=== PATIENT | male | born 1940 | race Caucasian/White ===

== ENCOUNTER → 2016-08-24 | Outpatient (CLI) | payer MEDICARE, OTHER ==
--- NOTE | 2016-08-24 13:53 | Diagnostic Imaging Report ---
Indications: COUGH Technique: PA and lateral chest Findings: Comparison: 12/03/2015 Lungs and pleura remain clear. Heart size and pulmonary vasculature remain within normal limits. Aortic arch calcification, right chest wall pacemaker, osteophytes at the margins of multiple thoracic intervertebral disc spaces, mild anterior wedging deformities of multiple adjacent thoracic vertebral bodies all again noted and unchanged. No new abnormality demonstrated. IMPRESSION: No evidence of acute cardiopulmonary disease, unchanged Stable chronic changes as described
== END | disposition home or self-care (01) ==
LOC: RAD 12:40
DX: R05 Cough (principal); Z95.0 Presence of cardiac pacemaker; M25.78 Osteophyte, vertebrae
CPT/HCPCS: 71020

== ENCOUNTER → 2017-02-13 | Outpatient (CLI) | payer MEDICARE, OTHER ==
--- NOTE | 2017-02-13 09:56 | Diagnostic Imaging Report ---
Indications: COUGH Technique: PA and lateral chest Findings: Comparison: 08/24/2016 Linear densities and increased interstitial markings have developed in both lung bases. Cardiac silhouette has increased in size. Mild pulmonary vascular redistribution suggested. No pleural abnormality evident. IMPRESSION: Findings suggest development of mild congestive change Element of superimposed subsegmental atelectasis in both lung bases
== END | disposition home or self-care (01) ==
LOC: RAD 08:45
DX: R05 Cough (principal); J98.11 Atelectasis
CPT/HCPCS: 71020

== ENCOUNTER 2017-08-22 09:44 | Inpatient (IN) | payer MEDICARE, MEDICAID ==
[~2017-08-22] VITALS: Ht 180.3 cm; Wt 111.1 kg
--- NOTE | 2017-08-22 10:07 | History & Physical ---
History and Physical History & Physicial Vital Signs -Extended Height: 71 inches Weight: 240 pounds Temperature: 98.6 degrees F ( oral) Pulse rate: 70 /min Pulse rhythm: regular Respirations: 16 /min O2 Sat: 94% Blood Pressure #1: 148/80 Calculations Body Mass Index: 33.59 Body Surface Area (m2): 2.28 History of Present Illness Hx. Source: patient Primary complaint: COPD exacerbation 76 Years Old Male patient presents today for admission. Patient complains of shortness of breath and a wet cough with discolored sputum. Patient with worsening symptoms overall and increasing dyspnea and chest tightness. Patient without reported fevers. No ill contacts. notes concerns and patient now being admitted patient with no fevers or congestion. patient taking inhalers as recommended and has been compliant overall. Active Medications (reviewed today): ATROVENT 0.06 % NASAL SOLUTION (IPRATROPIUM BROMIDE) 2 puff tid SPIRIVA RESPIMAT 2.5 MCG/ACT INHALATION AEROSOL SOLUTION (TIOTROPIUM BROMIDE MONOHYDRATE) 2 PUFF DAILY NOVOLOG 100 UNIT/ML SUBCUTANEOUS SOLUTION (INSULIN ASPART) 12 units DIOVAN 320 MG ORAL TABLET (VALSARTAN) Take one tablet daily CELEBREX 200 MG ORAL CAPSULE (CELECOXIB) Take one tablet two times daily ADVAIR DISKUS 500-50 MCG/DOSE INHALATION AEROSOL POWDER BREATH ACTIVATED ( FLUTICASONE-SALMETEROL) 1 PUFF BID NEXIUM 40 MG ORAL CAPSULE DELAYED RELEASE (ESOMEPRAZOLE MAGNESIUM) 1 by mouth qd LIPITOR 20 MG ORAL TABLET (ATORVASTATIN CALCIUM) 1 by mouth every pm JANUVIA 100 MG ORAL TABLET (SITAGLIPTIN PHOSPHATE) 1 daily LANTUS 100 UNIT/ML SUBCUTANEOUS SOLUTION (INSULIN GLARGINE) 15 units qhs QNASL 80 MCG/ACT NASAL AEROSOL SOLUTION (BECLOMETHASONE DIPROP (NASAL)) 1 PUFF BID SPIRIVA HANDIHALER 18 MCG INHALATION CAPSULE (TIOTROPIUM BROMIDE MONOHYDRATE) 1 qd Current Allergies (reviewed today): * LIQUID IRON (Mild) Risk Factors: Smoked Tobacco Use: Former smoker Cigarettes: Yes -- 3 pack(s) per day, Pack-years: 2-3ppd x 50years Year started: age 8 Year quit: 2006 Years Since Last Quit: 10 Smokeless Tobacco Use: Never Passive smoke exposure: no Drug use: no Caffeine use: 1 drinks per day Alcohol use: no Seatbelt use: 100 % Sun Exposure: frequently Review of Systems General: denies fevers, chills, sweats, anorexia, fatigue, malaise, weight loss Eyes: catarcts Ear/Nose/Throat: Congestion-intermittent Cardiovascular: pacemaker PVD Respiratory: See HPI Gastrointestinal: Denies nausea, vomiting, diarrhea, constipation, change in bowel habits, abdominal pain, melena, hematochezia, jaundice Genitourinary: Denies dysuria, hematuria, discharge, frequency, hesitancy, nocturia, incontinence, genital sores, impotence or decreased libido Musculoskeletal: arthritis Skin: denies rash, itching, dryness, suspicious lesions Neurologic: denies transient paralysis, weakness, paresthesias, seizures, syncope, tremors, vertigo Psychiatric: DEPRESSION Endocrine: denies cold intolerance, heat intolerance, polydipsia, polyphagia, polyuria, weight change Hematologic/Lymphatic: denies abnormal bruising, bleeding, enlarged lymph nodes Allergic/Immunologic: denies urticaria, hay fever, persistent infections, HIV exposure Physical Exam General Appearance: well nourished, well hydrated, no acute distress Respiratory Respiratory Effort: no intercostal retractions or use of accessory muscles Palpation: normal fremitus Auscultation: scattered rhonchi and reduced breath sounds with some wheeze oropharynx injected mild nasal discharge Cardiovascular Palpation: no thrill or palpable murmurs, no displacement of PMI Auscultation: S1, S2, no murmur, rub, or gallop Carotid arteries: pulses 2+, symmetric, no bruits pacemaker Peripheral Circulation: no cyanosis, clubbing, edema, or varicosities Musculoskeletal Gait and Station: stable and able to ambulate Digits and nails: arthritis Assessment COPD with acute exacerbation underlying respiratory infection possible Pneumonia nasal congestion Hypertension Plan admit IV steroids IV antibiotics respiratory care DVT prophylaxis resume home meds monitor for change IV hydration if needed will follow up for discharge planning impression, plan, and exam edited and reviewed in detail care discussed with TAMMI GALEAS Aug 22, 2017 10:07
--- NOTE | 2017-08-22 15:19 | Diagnostic Imaging Report ---
Indication: Cough Technique: One view of the chest Comparison: 02/13/2017 Findings: Slightly better inspiration currently. The heart is enlarged. Lungs and pleural spaces are clear, and previously demonstrated interstitial congestion has decreased. Impression: Cardiomegaly Decreased interstitial congestion, since 02/13/2017
[2017-08-22 15:34] LABS: BASOPHILS % (AUTO) 1.2 % (0.0-2.0); EOSINOPHILS % (AUTO) 0.9 % (0.0-3.0); HEMATOCRIT 44.6 % (42.0-52.0); HEMOGLOBIN 13.4 G/DL (14.2-18.0); LYMPHOCYTES % (AUTO) 12.6 % (20.0-45.0); MEAN CORPUSCULAR VOLUME 86 FL (80-99); NEUTROPHILS % (AUTO) 74.3 % (45.0-75.0); PLATELET COUNT 217 K/UL (150-450); RED BLOOD COUNT 5.16 M/UL (4.70-6.10); WHITE BLOOD COUNT 9.6 K/UL (4.8-10.8)
[2017-08-22 16:00] VITALS: BP 132/59
[2017-08-22] MEDS: NovoLOG Insulin Flexpen SUBQ SCH ×2 (17:00→21:02)
[2017-08-22] MEDS: Solu-MEDROL 40mg Inj IVP SCH (17:00)
[2017-08-22] MEDS: Albuterol/Ipratropium 3ml neb HHN SCH ×3 (17:00→22:42)
[2017-08-22] MEDS: cefTRIAXone 1 GM in D5W 55 ML IVPB SCH (18:06)
[2017-08-22 18:49] LABS: ANION GAP 14 mmol/L (5-15); BLOOD UREA NITROGEN 40 mg/dL (7-18); CALCIUM 7.9 MG/DL (8.5-10.1); CARBON DIOXIDE 21 MMOL/L (21-32); CHLORIDE 103 MMOL/L (98-107); CREATININE 1.7 MG/DL (0.55-1.30); SODIUM 138 MMOL/L (136-145)
[2017-08-22 20:00] VITALS: BP 171/86
[2017-08-22] MEDS: TraZODone 50mg tab ORAL SCH (20:58)
[2017-08-22] MEDS: Tamsulosin 0.4mg cap ORAL SCH (20:58)
[2017-08-22] MEDS: Atorvastatin 20mg tab ORAL SCH (20:58)
[2017-08-22] MEDS ORDERED: Heparin 5000 units/ml inj SUBQ SCH (21:00)
[2017-08-22] MEDS ORDERED: Zolpidem 5mg tab ORAL PRN (21:00)
[2017-08-22] MEDS: Advair 250/50 Inhaler - 14 dose INH SCH (21:09)
[2017-08-22] MEDS: Xarelto 15mg tab ORAL SCH (21:39)
[2017-08-23] VITALS (7 sets, daily range): BP systolic 127–180; BP diastolic 65–91
[2017-08-23] MEDS: Albuterol/Ipratropium 3ml neb HHN SCH ×6 (03:19→23:07)
[2017-08-23] MEDS: Solu-MEDROL 40mg Inj IVP SCH ×3 (05:58→22:11)
[2017-08-23] MEDS: NovoLOG Insulin Flexpen SUBQ SCH ×4 (06:01→21:07)
[2017-08-23] MEDS: Irbesartan 150mg tablet ORAL SCH (08:49)
[2017-08-23] MEDS: Tolterodine 2mg tab ORAL SCH (08:49)
[2017-08-23] MEDS: Advair 250/50 Inhaler - 14 dose INH SCH ×2 (09:53→23:09)
--- NOTE | 2017-08-23 11:18 | Pulmonology Progress Note ---
Assessment/Plan Assessment/Plan COPD with acute exacerbation underlying respiratory infection possible Pneumonia nasal congestion Hypertension Plan IV steroids IV antibiotics IV hydration x 1 day respiratory care DVT prophylaxis home meds monitor for change will follow up for discharge planning impression, plan, and exam edited and reviewed in detail care discussed with RN Subjective Allergies: Coded Allergies: IRON (Verified Allergy, Unknown, 06/03/10) Subjective care noted less congested findings noted Objective Last 24 Hour Vital Signs Date Time Temp Pulse Resp B/P (MAP) Pulse Ox O2 Delivery O2 Flow Rate FiO2 08/23/17 09:54 76 16 96 Room Air 21 08/23/17 09:53 72 16 96 Room Air 21 08/23/17 08:49 169/65 08/23/17 08:18 72 18 98 Room Air 21 08/23/17 08:08 75 16 Room Air 21 08/23/17 08:08 21 08/23/17 08:08 75 16 97 Room Air 21 08/23/17 08:00 97.1 77 20 169/65 97 08/23/17 04:00 97.9 69 19 154/77 96 08/23/17 03:29 75 18 98 Room Air 21 08/23/17 03:20 21 08/23/17 03:19 70 16 97 Room Air 21 08/23/17 00:33 97.7 69 18 166/76 95 08/22/17 22:44 78 18 96 Room Air 21 08/22/17 22:35 75 16 95 Room Air 21 08/22/17 22:35 21 08/22/17 21:40 171/86 08/22/17 21:11 75 16 96 Room Air 21 08/22/17 21:10 69 16 96 Room Air 21 08/22/17 20:00 97.5 72 18 171/86 97 08/22/17 19:40 69 18 95 Room Air 21 08/22/17 19:30 69 16 95 Room Air 21 08/22/17 19:30 95 16 Room Air 21 08/22/17 19:30 21 08/22/17 18:29 2.0 28 08/22/17 18:28 2.0 28 08/22/17 16:00 97.6 72 19 132/59 95 Intake and Output 08/22/17 08/23/17 19:00 07:00 Intake Total 240 ml 240 ml Balance 240 ml 240 ml Intake Oral 240 ml 240 ml # Voids 4 # Bowel Movements 1 Objective WDWN NAD reduced breath sounds bilaterally with some wheeze [id number] without MRG NABS nontender no HSM no CC trace edema nonfocal Laboratory Tests 08/22/17 14:40: White Blood Count 9.6, Red Blood Count 5.16, Hemoglobin 13.4L, Hematocrit 44.6, Mean Corpuscular Volume 86, Mean Corpuscular Hemoglobin 26.0L, Mean Corpuscular Hemoglobin Concent 30.1L, Red Cell Distribution Width 14.0, Platelet Count 217, Mean Platelet Volume 9.2, Neutrophils (%) (Auto) 74.3, Lymphocytes (%) (Auto) 12.6L, Monocytes (%) (Auto) 11.0H, Eosinophils (%) (Auto) 0.9, Basophils (%) ( Auto) 1.2, Sodium Level 138, Potassium Level 5.0, Chloride Level 103, Carbon Dioxide Level 21, Anion Gap 14, Blood Urea Nitrogen 40H, Creatinine 1.7H, Estimat Glomerular Filtration Rate , Glucose Level 162H, Calcium Level 7.9L Current Medications Medications (Trade) Dose Ordered Sig/Meagan Route PRN Reason Start Time Stop Time Status Last Admin Dose Admin Acetaminophen (Tylenol) 650 mg Q4H PRN ORAL Mild Pain/Temp > 100.5 08/22/17 13:30 09/21/17 13:29 Al Hydroxide/Mg Hydroxide (Mylanta) 30 ml Q4H PRN ORAL Constipation 08/22/17 13:30 09/21/17 13:29 Albuterol/ Ipratropium (Albuterol/ Ipratropium) 3 ml Q4HRT HHN 08/22/17 17:00 08/27/17 16:59 08/23/17 08:08 Atorvastatin Calcium (Lipitor) 20 mg BEDTIME ORAL 08/22/17 21:00 09/21/17 20:59 08/22/17 20:58 Ceftriaxone Sodium 1 gm/ Dextrose 55 ml @ 110 mls/hr Q24H IVPB 08/22/17 17:30 08/29/17 17:29 08/22/17 18:06 Clonidine HCl (Catapres) 0.1 mg Q4H PRN ORAL For High Blood Pressure 08/22/17 21:30 09/21/17 21:29 08/22/17 21:40 Dextrose (Dextrose 50%) STAT PRN IV Hypoglycemia 08/22/17 13:30 09/21/17 13:29 Finasteride (Proscar) 5 mg DAILY ORAL 08/23/17 09:00 09/22/17 08:59 08/23/17 08:49 Insulin Aspart (NovoLOG) BEFORE MEALS AND HS SUBQ 08/22/17 17:00 09/21/17 16:59 08/23/17 06:01 Irbesartan (Avapro) 300 mg DAILY ORAL 08/23/17 09:00 09/22/17 08:59 08/23/17 08:49 Methylprednisolone Sodium Succinate (Solu-MEDROL) 40 mg EVERY 8 HOURS IVP 08/22/17 17:00 09/21/17 16:59 08/23/17 05:58 Pantoprazole (Protonix) 40 mg DAILY ORAL 08/23/17 09:00 09/22/17 08:59 08/23/17 08:49 Rivaroxaban (Xarelto) 15 mg QPM ORAL 08/22/17 20:00 09/21/17 19:59 08/22/17 21:39 Salmeterol Xinafoate/ Fluticasone (Advair 250/50 Diskus) 1 puffs BIDRT INH 08/22/17 22:00 09/21/17 21:59 08/23/17 09:53 Sitagliptin Phosphate (Januvia) 100 mg ACBREAKFAST ORAL 08/23/17 06:30 09/22/17 06:29 08/23/17 05:58 Tamsulosin HCl (Flomax) 0.4 mg BEDTIME ORAL 08/22/17 21:00 09/21/17 20:59 08/22/17 20:58 Tolterodine Tartrate (Detrol) 4 mg DAILY ORAL 08/23/17 09:00 09/22/17 08:59 08/23/17 08:49 Trazodone HCl (Desyrel) 50 mg BEDTIME ORAL 08/22/17 21:00 09/21/17 20:59 08/22/17 20:58 Zolpidem Tartrate (Ambien) 5 mg HSPRN PRN ORAL Insomnia 08/22/17 21:00 08/29/17 20:59 TAMMI RODRIGUEZ Aug 23, 2017 11:18
[2017-08-23] MEDS: Xarelto 15mg tab ORAL SCH (16:43)
[2017-08-23] MEDS: cefTRIAXone 1 GM in D5W 55 ML IVPB SCH (17:04)
[2017-08-23] MEDS: Tamsulosin 0.4mg cap ORAL SCH (20:58)
[2017-08-23] MEDS: TraZODone 50mg tab ORAL SCH (20:59)
[2017-08-23] MEDS: Atorvastatin 20mg tab ORAL SCH (21:04)
[2017-08-24 01:00] VITALS: BP 151/63
[2017-08-24] MEDS: Albuterol/Ipratropium 3ml neb HHN SCH ×3 (03:37→12:16)
[2017-08-24 04:37] VITALS: BP 166/67
[2017-08-24] MEDS: Solu-MEDROL 40mg Inj IVP SCH (06:15)
[2017-08-24] MEDS: NovoLOG Insulin Flexpen SUBQ SCH ×2 (06:21→12:12)
[2017-08-24 07:36] LABS: ANION GAP 11 mmol/L (5-15); BLOOD UREA NITROGEN 49 mg/dL (7-18); CALCIUM 7.7 MG/DL (8.5-10.1); CARBON DIOXIDE 23 MMOL/L (21-32); CHLORIDE 101 MMOL/L (98-107); CREATININE 1.9 MG/DL (0.55-1.30); POTASSIUM 4.5 MMOL/L (3.5-5.1); SODIUM 135 MMOL/L (136-145)
[2017-08-24 08:00] VITALS: BP 149/92
--- NOTE | 2017-08-24 08:30 | Pulmonology Progress Note ---
Assessment/Plan Assessment/Plan COPD with acute exacerbation underlying respiratory infection possible Pneumonia nasal congestion Hypertension diabetes Plan IV steroids- po taper IV antibiotics- po on discharge IV hydration and dc and encourage hydration respiratory care DVT prophylaxis home meds monitor for change dc today and monitor after discharge impression, plan, and exam edited and reviewed in detail care discussed with RN Subjective Allergies: Coded Allergies: IRON (Verified Allergy, Unknown, 06/03/10) Subjective care noted less congested findings noted wants to go home sugars elevated Objective Last 24 Hour Vital Signs Date Time Temp Pulse Resp B/P (MAP) Pulse Ox O2 Delivery O2 Flow Rate FiO2 08/24/17 08:21 21 08/24/17 08:21 72 20 96 Room Air 21 08/24/17 08:10 90 18 98 Room Air 21 08/24/17 06:15 166/67 08/24/17 04:37 96.1 71 18 166/67 98 Room Air 08/24/17 03:49 107 20 99 Room Air 21 08/24/17 03:34 21 08/24/17 03:34 79 20 97 Room Air 21 08/24/17 01:05 151/63 08/24/17 01:00 97.2 71 16 151/63 98 Room Air 08/23/17 23:12 83 18 99 Room Air 21 08/23/17 23:12 83 18 99 Room Air 21 08/23/17 23:12 83 18 98 Room Air 21 08/23/17 23:02 76 18 97 Room Air 21 08/23/17 22:00 97.1 71 18 161/70 98 Room Air 08/23/17 21:04 180/91 08/23/17 20:59 79 18 98 Room Air 21 08/23/17 20:48 21 08/23/17 20:48 82 18 95 Room Air 21 08/23/17 20:30 83 18 180/91 98 08/23/17 16:00 97.2 72 18 127/76 98 08/23/17 15:19 21 08/23/17 15:19 97 18 98 Room Air 21 08/23/17 15:09 80 16 96 Room Air 21 08/23/17 12:00 97.0 71 19 159/72 98 08/23/17 11:30 70 18 98 Room Air 21 08/23/17 11:22 81 16 95 Room Air 21 08/23/17 11:22 21 08/23/17 09:54 76 16 96 Room Air 21 08/23/17 09:53 72 16 96 Room Air 21 08/23/17 08:49 169/65 Intake and Output 08/23/17 08/24/17 19:00 07:00 Intake Total 950 ml 1000 ml Balance 950 ml 1000 ml Intake Oral 850 ml 500 ml IV Total 100 ml 500 ml # Voids 3 2 Objective WDWN NAD reduced breath sounds bilaterally without wheeze or rhonchi [id number] without MRG NABS nontender no HSM no CC trace edema nonfocal Microbiology Date/Time Source Procedure Growth Status 08/22/17 21:40 Sputum Gram Stain - Final Resulted 08/22/17 21:40 Sputum Sputum Culture - Preliminary NORMAL UPPER RESPIRATORY ALEXANDREA AT 24 ... Resulted Laboratory Tests 08/24/17 05:10: Sodium Level 135L, Potassium Level 4.5, Chloride Level 101, Carbon Dioxide Level 23, Anion Gap 11, Blood Urea Nitrogen 49H, Creatinine 1.9H, Estimat Glomerular Filtration Rate , Glucose Level 356H, Calcium Level 7.7L Current Medications Medications (Trade) Dose Ordered Sig/Meagan Route PRN Reason Start Time Stop Time Status Last Admin Dose Admin Acetaminophen (Tylenol) 650 mg Q4H PRN ORAL Mild Pain/Temp > 100.5 08/22/17 13:30 09/21/17 13:29 Al Hydroxide/Mg Hydroxide (Mylanta) 30 ml Q4H PRN ORAL Constipation 08/22/17 13:30 09/21/17 13:29 Albuterol/ Ipratropium (Albuterol/ Ipratropium) 3 ml Q4HRT HHN 08/22/17 17:00 08/27/17 16:59 08/24/17 08:09 Atorvastatin Calcium (Lipitor) 20 mg BEDTIME ORAL 08/22/17 21:00 09/21/17 20:59 08/23/17 21:04 Ceftriaxone Sodium 1 gm/ Dextrose 55 ml @ 110 mls/hr Q24H IVPB 08/22/17 17:30 08/29/17 17:29 08/23/17 17:04 Clonidine HCl (Catapres) 0.1 mg Q4H PRN ORAL For High Blood Pressure 08/22/17 21:30 09/21/17 21:29 08/24/17 06:15 Dextrose (Dextrose 50%) STAT PRN IV Hypoglycemia 08/22/17 13:30 09/21/17 13:29 Finasteride (Proscar) 5 mg DAILY ORAL 08/23/17 09:00 09/22/17 08:59 08/23/17 08:49 Insulin Aspart (NovoLOG) BEFORE MEALS AND HS SUBQ 08/22/17 17:00 09/21/17 16:59 08/24/17 06:21 Irbesartan (Avapro) 300 mg DAILY ORAL 08/23/17 09:00 09/22/17 08:59 08/23/17 08:49 Methylprednisolone Sodium Succinate (Solu-MEDROL) 40 mg EVERY 8 HOURS IVP 08/22/17 17:00 09/21/17 16:59 08/24/17 06:15 Pantoprazole (Protonix) 40 mg DAILY ORAL 08/23/17 09:00 09/22/17 08:59 08/23/17 08:49 Rivaroxaban (Xarelto) 15 mg QPM ORAL 08/22/17 20:00 09/21/17 19:59 08/23/17 16:43 Salmeterol Xinafoate/ Fluticasone (Advair 250/50 Diskus) 1 puffs BIDRT INH 08/22/17 22:00 09/21/17 21:59 08/23/17 23:09 Sitagliptin Phosphate (Januvia) 100 mg ACBREAKFAST ORAL 08/23/17 06:30 09/22/17 06:29 08/24/17 06:15 Sodium Chloride 1,000 ml @ 100 mls/hr Q10H IV 08/23/17 12:30 09/22/17 12:29 08/24/17 06:15 Tamsulosin HCl (Flomax) 0.4 mg BEDTIME ORAL 08/22/17 21:00 09/21/17 20:59 08/23/17 20:58 Tolterodine Tartrate (Detrol) 4 mg DAILY ORAL 08/23/17 09:00 09/22/17 08:59 08/23/17 08:49 Trazodone HCl (Desyrel) 50 mg BEDTIME ORAL 08/22/17 21:00 09/21/17 20:59 08/23/17 20:59 Zolpidem Tartrate (Ambien) 5 mg HSPRN PRN ORAL Insomnia 08/22/17 21:00 08/29/17 20:59 08/23/17 21:13 TAMMI RODRIGUEZ Aug 24, 2017 08:30
[2017-08-24 09:49] VITALS: BP 149/92
[2017-08-24] MEDS: Tolterodine 2mg tab ORAL SCH (09:49)
[2017-08-24] MEDS: Irbesartan 150mg tablet ORAL SCH (09:49)
[2017-08-24] MEDS: Advair 250/50 Inhaler - 14 dose INH SCH (12:16)
[2017-08-24] MEDS ORDERED: 1/2 NS 1000ml IV ONE (13:29)
--- NOTE | 2017-08-27 13:07 | Discharge Summary ---
Discharge Summary Hospital Course Date of Admission Aug 22, 2017 at 11:27 Date of Discharge Aug 24, 2017 at 13:30 Admitting Diagnosis GUSTAVO Castillo is a 76 year old male who was admitted on Aug 22, 2017 at 11:27 for Chronic Obstructive Pulmonary Disease,Exacerbation Hospital Course dc summary #[id number] Discharge Condition Upon Discharge: stable Discharge Disposition Patient was discharged to Home (01) Discharge Diagnoses: Discharge Instructions Discharge Instructions Special Instructions I have been assigned to complete a D/C Summary on this account. I was not involved in the patient management Destinee Dominguez NP ([facility]) Aug 27, 2017 13:07
--- NOTE | 2017-08-27 18:45 | Discharge Summary 2 SIG ---
DATE OF ADMISSION: 08/22/2017 DATE OF DISCHARGE: 08/24/2017 REASON FOR ADMISSION: 76-year-old male with history of chronic obstructive pulmonary disease, pacemaker, hypertension, diabetes, and history of tobacco abuse presented with shortness of breath, wet cough and discolored sputum. The patient presented with increased dyspnea, chest tightness and worsening symptoms. The patient did not report fever. The patient initially was presented at the office and was sent for direct admission. The patient admitted with acute chronic obstructive pulmonary disease exacerbation, underlying respiratory infection, possible pneumonia, hypertension and nasal congestion. HOSPITAL COURSE: The patient admitted. The patient started on supplemental oxygen to keep pulse oximetry above 92%. Pulmonary toilet provided with bronchodilator therapy via nebulizer. The patient was provided with Advair inhaler The patient started on IV steroids, which were gradually tapered down. The patient had no leukocytosis. Sputum culture was negative. The patient was initially on empiric antibiotics. DVT prophylaxis provided. Home medications were resumed. Chest x-ray revealed no acute cardiopulmonary pathology, but showed evidence of cardiomegaly. The patient gradually improved. Blood sugar was managed with sliding scale of insulin. The patient clinically improved and was stable for discharge. FINAL DIAGNOSES: 1. Chronic obstructive pulmonary disease with acute exacerbation. 2. Underlying respiratory infection. 3. Possible pneumonia. 4. Hypertension. 5. Nasal congestion. DISCHARGE MEDICATIONS: List of medication provided to patient. DISCHARGE INSTRUCTIONS: The patient was discharged home. Follow up with the baggage and mail agent next week. Gerardo Gabriel M.D. I have been assigned to dictate discharge summary on this account and I was not involved in the patient's management. Destinee Garciarhoda) N.P. DR: DESHAUN JOB#: [id number] CC: DORIAN
== END 2017-08-24 13:30 | disposition home or self-care (01) | DRG 190 ==
LOC: 3E 11:27
DX: J44.0 Chronic obstructive pulmonary disease with (acute) lower respiratory infection (principal); J18.9 Pneumonia, unspecified organism; I10 Essential (primary) hypertension; E11.9 Type 2 diabetes mellitus without complications; J44.1 Chronic obstructive pulmonary disease with (acute) exacerbation; Z87.891 Personal history of nicotine dependence; Z79.4 Long term (current) use of insulin; Z95.0 Presence of cardiac pacemaker; R09.81 Nasal congestion
CPT/HCPCS: 36415; 71045; 80048; 82962; 85025; 87070; 87205; 94640; 94664; J1815; J7620